=== PATIENT | male | born 1970 | race Caucasian/White ===

== ENCOUNTER 2017-03-27 09:18 | Inpatient (IN) | payer OTHER ==
[2017-03-27 10:32] VITALS: BMI 27.3
[2017-03-27] MEDS ORDERED: IBUPROFEN 400 MG TABLET (FP) PO PRN (12:53)
[2017-03-27] MEDS ORDERED: MAGNESIUM CITRATE 300 ML BOTTLE PO PRN (12:53)
[2017-03-27] MEDS ORDERED: P-EPHED 60MG/TRIPROLIDI 2.5MG TABLET PO PRN (12:53)
[2017-03-27] MEDS ORDERED: MAGNESIUM HYDROX 2400MG/30ML ORAL SUSPENSION 30 ML CUP PO PRN (12:53)
[2017-03-27] MEDS ORDERED: guaiFENesin/D-METHORPHAN HB 10 ML UNIT-DOSE CUPS PO PRN (12:53)
[2017-03-27] MEDS ORDERED: chlordiazePOXIDE HCL 25 MG CAPSULE PO PRN (12:53)
[2017-03-27] MEDS ORDERED: MAG HYDROX/AL HYDROX/SIMETH 30 ML UNIT-DOSE CUP PO PRN (12:53)
[2017-03-27] MEDS ORDERED: METHADONE HCL 10 MG TABLET (FOR DETOX USE ONLY) PO ONE ×2 (12:53→23:00)
[2017-03-27] MEDS ORDERED: diphenhydrAMINE HCL 50 MG CAPSULE PO PRN (12:53)
[2017-03-27] MEDS ORDERED: NICOTINE POLACRILEX 2 MG GUM BUC PRN (12:53)
[2017-03-27] MEDS ORDERED: LOPERAMIDE HCL 2 MG CAPSULE PO PRN (12:53)
[2017-03-27] MEDS ORDERED: ACETAMINOPHEN 325 MG TABLET (FP) PO PRN (12:53)
[2017-03-27] MEDS ORDERED: MENTHOL/PHENOL 1 EACH UD MM PRN (12:53)
[2017-03-27] MEDS ORDERED: chlordiazePOXIDE HCL 25 MG CAPSULE PO ONE (12:53)
--- NOTE | 2017-03-27 13:05 | HP ---
COWS - Scale Resting Pulse: 1= [place] 81-100 Sweatin=Flushed/Facial Moisture Restless Observation: 1= Difficult to Sit Still Pupil Size: 1= Pupils >than Normal Bone or Joint Aches: 1= Mild Discomfort Runny Nose/ Eye Tearin= Nasal Congestion GI Upset > 30mins: 2= Nausea/Diarrhea Tremor Observation: 2= Slight Tremor Visible Yawning Observation: 2= >3x During Session Anxiety or Irritability: 2=Irritable/Anxious Goose Flesh Skin: 0=Smooth Skin COWS Score: 15 CIWA Score - CIWA Score Nausea/Vomitin Muscle Tremors: 3 Anxiety: 4-Mod. Anxious/Guarded Agitation: 4-Moderately Restless Paroxysmal Sweats: 3 Orientation: 0-Oriented Tacttile Disturbances: 1-Very Mild Itch/Numbness Auditory Disturbances: 0-None Visual Disturbances: 0-None Headache: 0-None Present CIWA-Ar Total Score: 17 Admission ROS BHS - HPI Chief Complaint: Withdrawal sx. Allergies/Adverse Reactions: Allergies Allergy/AdvReac Type Severity Reaction Status Date / Time No Known Allergies Allergy Verified 03/27/17 10:22 History of Present Illness: 46 y/o man with a long hx. of heroin & alcohol dependence is admitted for detox. Pt. has been in previous detox & OTP many yrs. ago. Exam Limitations: No Limitations - Ebola screening Have you traveled outside of the country in the last 21 days: No Have you had contact with anyone from an Ebola affected area: No Have you been sick,other than usual withdrawal symptoms: No Do you have a fever: No - Review of Systems Constitutional: Diaphoresis EENT: reports: Nose Congestion Respiratory: reports: Shortness of Breath (because of smoking) Cardiac: reports: No Symptoms Reported GI: reports: Nausea, Abdominal cramping : reports: No Symptoms Reported Musculoskeletal: reports: Back Pain, Joint Pain Integumentary: reports: Sweating Neuro: reports: Tingling, Tremors Endocrine: reports: No Symptoms Reported Hematology: reports: No Symptoms Reported Psychiatric: reports: No Sypmtoms Reported Other Systems: Reviewed and Negative Patient History - Patient Medical History Hx Anemia: No Hx Asthma: No Hx Chronic Obstructive Pulmonary Disease (COPD): Yes (Early signs of COPD) Hx Cancer: No Hx Cardiac Disorders: No Hx Congestive Heart Failure: No Hx Hypertension: No Hx Hypercholesterolemia: No Hx Pacemaker: No HX Cerebrovascular Accident: No Hx Seizures: No Hx Diabetes: No Hx Gastrointestinal Disorders: No Hx Liver Disease: No Hx Genitourinary Disorders: No Hx Sexually Transmitted Disorders: No Hx Renal Disease (ESRD): No Hx Thyroid Disease: No Hx Human Immunodeficiency Virus (HIV): No Hx Hepatitis C: No Hx Depression: Yes Hx Suicide Attempt: No Hx Bipolar Disorder: Yes Hx Schizophrenia: No Other Medical History: Weekend palsy (left axillary nerve impingent) - Patient Surgical History Past Surgical History: Yes Hx Neurologic Surgery: No Hx Cataract Extraction: No Hx Cardiac Surgery: No Hx Lung Surgery: No Hx Breast Surgery: No Hx Breast Biopsy: No Hx Abdominal Surgery: No Hx Appendectomy: No Hx Cholecystectomy: No Hx Genitourinary Surgery: No Hx Section: No Hx Orthopedic Surgery: No Other Surgical History: repair of torn tendon of bicept right arm Anesthesia Reaction: No - PPD History Previous Implant?: Yes Documented Results: Negative w/o proof PPD to be Administered?: Yes - Smoking Cessation Smoking history: Current every day smoker Have you smoked in the past 12 months: Yes Aproximately how many cigarettes per day: 10 Hx Chewing Tobacco Use: No Initiated information on smoking cessation: Yes 'Breaking Loose' booklet given: 03/27/17 - Substance & Tx. History Hx Alcohol Use: Yes Hx Substance Use: Yes Substance Use Type: Alcohol, Cocaine, Heroin Hx Substance Use Treatment: Yes (many yrs. ago) - Substances Abused Alcohol Route: Oral Frequency: Daily Amount used: Vodka 2 PINTS, BEER- 2 SIX PACKS Age of first use: 15 Date of Last Use: 03/26/17 Cocaine Route: Injection Frequency: Daily Amount used: 2gm Age of first use: 18 Date of Last Use: 03/26/17 Heroin Route: Injection Frequency: Daily Amount used: 1 bag Age of first use: 30 Date of Last Use: 03/26/17 Family Disease History - Family Disease History Family Disease History: Diabetes: Mother (high chol), Heart Disease: Father ( CABG), Mother, Other: Mother Admission Physical Exam BHS - Vital Signs Vital Signs: Vital Signs - 24 hr 03/27/17 10:00 Temperature 97 F L Pulse Rate 88 Respiratory 18 Rate Blood Pressure 125/80 - Physical General Appearance: Yes: Tremorous, Irritable, Sweating, Anxious HEENTM: Yes: Nasal Congestion, Rhinorrhea Respiratory: Yes: Chest Non-Tender, Lungs Clear, Normal Breath Sounds Neck: Yes: Supple Breast: Yes: Breast Exam Deferred Cardiology: Yes: Regular Rhythm, Regular Rate, S1, S2 Abdominal: Yes: Normal Bowel Sounds, Non Tender, Soft Genitourinary: Yes: Within Normal Limits Back: Yes: Within Normal Limits Musculoskeletal: Yes: Within Normal Limits Extremities: Yes: Tremors Neurological: Yes: Fully Oriented, Alert Integumentary: Yes: Diaphoresis Lymphatic: Yes: Within Normal Limits - Diagnostic (1) Alcohol dependence with uncomplicated withdrawal Current Visit: Yes Status: Acute (2) Cocaine dependence, uncomplicated Current Visit: Yes Status: Acute (3) Opioid dependence with withdrawal Current Visit: Yes Status: Acute Cleared for Admission [facility] - Detox or Rehab [facility] Level of Care: Medically Managed Detox Regimen/Protocol: Methadone/Librium [facility] Breath Alcohol Content Breath Alcohol Content: 0 Urine Drug Screen - Results Drug Screen Negative: No Urine Drug Screen Results: GINGER-Cocaine, OPI-Opiates
[2017-03-27] MEDS: NICOTINE 21 MG/24 HOURS TOPICAL PATCH TD SCH (14:15)
[2017-03-27] MEDS: chlordiazePOXIDE HCL 25 MG CAPSULE PO SCH ×2 (17:24→22:08)
[2017-03-27 18:18] LABS: URINE APPEARANCE CLEAR; URINE BILIRUBIN NEGATIVE (NEGATIVE); URINE BLOOD NEGATIVE (NEGATIVE); URINE COLOR STRAW; URINE GLUCOSE (UA) NEGATIVE (NEGATIVE); URINE KETONE NEGATIVE (NEGATIVE); URINE LEUK ESTERASE NEGATIVE (NEGATIVE); URINE NITRITE NEGATIVE (NEGATIVE); URINE PROTEIN NEGATIVE (NEGATIVE); URINE UROBILINOGEN NEGATIVE mg/dL (0.2-1.0)
[2017-03-27] MEDS: ALBUTEROL SO4 6.7 GM HFA INHALER IH PRN (19:24)
[2017-03-27] MEDS: hydrOXYzine PAMOATE 50 MG CAPSULE (FP) PO PRN (19:48)
[2017-03-27] MEDS: THIAMINE HCL 100 MG TABLET (FP) PO SCH (22:08)
[2017-03-28] MEDS: hydrOXYzine PAMOATE 50 MG CAPSULE (FP) PO PRN (03:50)
[2017-03-28] MEDS: chlordiazePOXIDE HCL 25 MG CAPSULE PO SCH ×4 (04:55→23:59)
--- NOTE | 2017-03-28 08:47 | CONSULT ---
[facility] Psychiatric Consult - Data Date of interview: 03/28/17 Admission source: [facility] Identifying data: This is 46 years old male with history of Bipolar Disorder intoxicated with : Alcohol, Opioids and Cocaine Substance Abuse History: - Smoking Cessation. Smoking history: Current every day smoker. Have you smoked in the past 12 months: Yes. Aproximately how many cigarettes per day: 10. Hx Chewing Tobacco Use: No. Initiated information on smoking cessation: Yes. 'Breaking Loose' booklet given: 03/27/17. - Substance & Tx. History. Hx Alcohol Use: Yes. Hx Substance Use: Yes. Substance Use Type : Alcohol, Cocaine, Heroin. Hx Substance Use Treatment: Yes (many yrs. ago). - Substances Abused. Alcohol. Route: Oral. Frequency: Daily. Amount used : Vodka 2 PINTS, BEER- 2 SIX PACKS. Age of first use: 15. Date of Last Use: . Cocaine. Route: Injection. Frequency: Daily. Amount used: 2gm. Age of first use: 18. Date of Last Use: 03/26/17. Heroin. Route: Injection. Frequency: Daily. Amount used: 1 bag. Age of first use: 30. Date of Last Use: 03/26/17 Medical History: Patient denies significant medical problem Psychiatric History: Patient reports history of Bipolar disorder with m,ost recent psychiatric admission on 2016 at [facility], reports currently taking: Haldol 5mg po bid. Depakote 500mg po bid. Zyprexa 5mg poqd. Cogentin 1mg po bid. Physical/Sexual Abuse/Trauma History: Denies Additional Comment: Haldol 5mg po bid. Depakote 500mg po bid. Zyprexa 5mg poqd. Cogentin 1mg po bid Mental Status Exam - Mental Status Exam Alert and Oriented to: Person Cognitive Function: Fair Patient Appearance: Unkempt Mood: Sad Affect: Flat Patient Behavior: Sedated Speech Pattern: Delayed Voice Loudness: Mildly Loud Thought Process: Circumstantial Thought Disorder: Being Controlled Hallucinations: Denies Suicidal Ideation: Denies Homicidal Ideation: Denies Insight/Judgement: Fair Sleep: Difficulty falling asleep Appetite: Weight gain Muscle strength/Tone: Mild Hypotonicity Gait/Station: Shuffling Additional Comments: Haldol 5mg po bid. Depakote 500mg po bid. Zyprexa 5mg poqd. Cogentin 1mg po bid Psychiatric Findings - Problem List ([place] 1, 2,3) (1) Alcohol dependence with uncomplicated withdrawal Current Visit: Yes Status: Chronic (2) Cocaine dependence, uncomplicated Current Visit: Yes Status: Chronic (3) Opioid dependence with withdrawal Current Visit: Yes Status: Chronic (4) Bipolar I disorder Current Visit: Yes Status: Acute Comment: Haldol 5mg po bid Depakote 500mg po bid Zyprexa 5mg poqd Cogentin 1mg po bid - Initial Treatment Plan Initial Treatment Plan: Haldol 5mg po bid. Depakote 250mg po bid. Zyprexa 5mg poqd-Hold. Cogentin 1mg po bid. Blood Depakote level
[2017-03-28] MEDS ORDERED: METHADONE HCL 5 MG TABLET (FOR DETOX USE ONLY) PO SCH (10:00)
[2017-03-28 10:18] LABS: MCH 29.9 pg (25.7-33.7); MEAN CELL VOLUME 90.6 fl (80-96); MEAN PLT VOLUME 9.6 fl (7.5-11.1); PLATELET COUNT 234 K/MM3 (134-434); RDW 13.9 % (11.9-15.9); WHITE BLOOD COUNT 6.8 K/mm3 (4.0-10.0)
[2017-03-28] MEDS: DIVALPROEX SODIUM 250 MG TABLET E.C. (FP) PO SCH ×2 (10:21→23:59)
[2017-03-28] MEDS: HALOPERIDOL 5 MG TABLET (FP) PO PRN (10:21)
[2017-03-28] MEDS: PRENATAL VITAMINS W/ FOLIC ACID TABLET (FP) PO SCH (10:21)
--- NOTE | 2017-03-28 10:26 | PN ---
[facility] CIWA - CIWA Score Nausea/Vomitin-No Nausea/No Vomiting Muscle Tremors: 4-Moderate,w/Arms Extend Anxiety: 3 Agitation: 4-Moderately Restless Paroxysmal Sweats: 3 Orientation: 0-Oriented Tacttile Disturbances: 0-None Auditory Disturbances: 0-None Visual Disturbances: 0-None Headache: 0-None Present CIWA-Ar Total Score: 14 BHS COWS - Scale Resting Pulse: 0= [place] 80 or Below Sweatin=Flushed/Facial Moisture Restless Observation: 1= Difficult to Sit Still Pupil Size: 0= Normal to Room Light Bone or Joint Aches: 1= Mild Discomfort Runny Nose/ Eye Tearin= Nasal Congestion GI Upset > 30mins: 0= None Tremor Observation of Outstretched Hands: 2= Slight Tremor Visible Yawning Observation: 2= >3x During Session Anxiety or Irritability: 2=Irritable/Anxious Goose Flesh Skin: 3=Piloerection COWS Score: 14 [facility] Progress Note (SOAP) Subjective: restless irritable agitation anxiety body aches interrupted sleep I would like to see dietary Objective: 03/28/17 11:08 Vital Signs Temperature 98.1 F 03/28/17 09:54 Pulse Rate 79 03/28/17 09:54 Respiratory Rate 18 03/28/17 09:54 Blood Pressure 108/57 03/28/17 09:54 O2 Sat by Pulse Oximetry (%) Laboratory Tests 03/27/17 03/28/17 03/28/17 15:33 07:00 07:00 WBC 6.8 RBC 3.77 L Hgb 11.3 L Hct 34.2 L MCV 90.6 MCH 29.9 MCHC 33.0 RDW 13.9 Plt Count 234 MPV 9.6 Sodium 142 Potassium 4.4 Chloride 106 Carbon Dioxide 28 Anion Gap 8 BUN 22 H Creatinine 0.8 Creat Clearance w eGFR > 60 Random Glucose 105 Calcium 8.8 Total Bilirubin 0.2 AST 16 ALT 26 Alkaline Phosphatase 83 Total Protein 6.7 Albumin 3.2 L Urine Color Straw Urine Appearance Clear Urine pH 6.0 Ur Specific [place] 1.015 Urine Protein Negative Urine Glucose (UA) Negative Urine Ketones Negative Urine Blood Negative Urine Nitrite Negative Urine Bilirubin Negative Urine Urobilinogen Negative Ur Leukocyte Esterase Negative awake/alert ambulating no acute distress Assessment: 03/28/17 11:08 withdrawal sx Plan: continue detox increase fluids dietary risk consultant ordered
[2017-03-28 10:32] LABS: ALBUMIN 3.2 g/dl (3.4-5.0); ALK PHOS 83 U/L (45-117); ANION GAP 8 (8-16); BILIRUBIN,TOTAL 0.2 mg/dL (0.2-1.0); CALCIUM 8.8 mg/dL (8.5-10.1); CO2 28 mmol/L (21-32); CREATININE 0.8 mg/dL (0.7-1.3); GLUCOSE,RANDOM 105 mg/dL (74-106); SGOT/AST 16 U/L (15-37); SGPT/ALT 26 U/L (12-78); TOT PROT 6.7 g/dl (6.4-8.2)
[2017-03-28] MEDS: NICOTINE 21 MG/24 HOURS TOPICAL PATCH TD SCH (10:48)
[2017-03-28] MEDS ORDERED: OLANZapine 5 MG TABLET PO ONE (15:30)
--- NOTE | 2017-03-28 23:18 | EKG ---
Test Reason : Blood Pressure : / mmHG Vent. Rate : 088 BPM Atrial Rate : 088 BPM P-R Int : 142 ms QRS Dur : 084 ms QT Int : 338 ms P-R-T Axes : 057 045 050 degrees QTc Int : 408 ms NORMAL SINUS RHYTHM NORMAL ECG NO PREVIOUS ECGS AVAILABLE Confirmed by HOMA HEATON MD ([id number]) on 03/28/2017 11:17:45 PM Referred By: Confirmed By:HOMA HEATON MD
[2017-03-28] MEDS: THIAMINE HCL 100 MG TABLET (FP) PO SCH (23:59)
[2017-03-28] MEDS: BENZTROPINE MESYLATE 1 MG TABLET (FP) PO SCH (23:59)
[2017-03-29] MEDS: chlordiazePOXIDE HCL 25 MG CAPSULE PO SCH ×2 (06:52→10:14)
[2017-03-29] MEDS ORDERED: METHADONE HCL 10 MG TABLET (FOR DETOX USE ONLY) PO SCH (10:00)
[2017-03-29] MEDS: HALOPERIDOL 5 MG TABLET (FP) PO PRN (10:14)
[2017-03-29] MEDS: PRENATAL VITAMINS W/ FOLIC ACID TABLET (FP) PO SCH (10:14)
[2017-03-29] MEDS: DIVALPROEX SODIUM 250 MG TABLET E.C. (FP) PO SCH ×2 (10:14→22:25)
[2017-03-29] MEDS: BENZTROPINE MESYLATE 1 MG TABLET (FP) PO SCH ×2 (10:14→22:25)
[2017-03-29] MEDS: NICOTINE 21 MG/24 HOURS TOPICAL PATCH TD SCH (10:14)
[2017-03-29] MEDS: ALBUTEROL SO4 6.7 GM HFA INHALER IH PRN ×2 (10:15→20:24)
[2017-03-29] MEDS: OLANZapine 5 MG TABLET PO SCH (10:15)
--- NOTE | 2017-03-29 10:27 | PN ---
[facility] CIWA - CIWA Score Nausea/Vomitin Muscle Tremors: 4-Moderate,w/Arms Extend Anxiety: 4-Mod. Anxious/Guarded Agitation: 4-Moderately Restless Paroxysmal Sweats: 3 Orientation: 0-Oriented Tacttile Disturbances: 0-None Auditory Disturbances: 0-None Visual Disturbances: 0-None Headache: 1-Very Mild CIWA-Ar Total Score: 19 BHS COWS - Scale Resting Pulse: 1= [place] 81-100 Sweatin= Chills/Flushing Restless Observation: 1= Difficult to Sit Still Pupil Size: 1= Pupils >than Normal Bone or Joint Aches: 1= Mild Discomfort Runny Nose/ Eye Tearin= Nasal Congestion GI Upset > 30mins: 2= Nausea/Diarrhea Tremor Observation of Outstretched Hands: 2= Slight Tremor Visible Yawning Observation: 2= >3x During Session Anxiety or Irritability: 2=Irritable/Anxious Goose Flesh Skin: 3=Piloerection COWS Score: 17 S Progress Note (SOAP) Subjective: nausea, sweats, interrupted sleep, anxiety, tremosr, body aches Objective: 03/29/17 10:27 Vital Signs - 8 hr 03/29/17 06:52 Temperature 99.3 F Pulse Rate 90 Respiratory 18 Rate Blood Pressure 113/68 Laboratory Tests 03/27/17 03/28/17 03/28/17 15:33 07:00 07:00 WBC 6.8 RBC 3.77 L Hgb 11.3 L Hct 34.2 L MCV 90.6 MCH 29.9 MCHC 33.0 RDW 13.9 Plt Count 234 MPV 9.6 Sodium 142 Potassium 4.4 Chloride 106 Carbon Dioxide 28 Anion Gap 8 BUN 22 H Creatinine 0.8 Creat Clearance w eGFR > 60 Random Glucose 105 Calcium 8.8 Total Bilirubin 0.2 AST 16 ALT 26 Alkaline Phosphatase 83 Total Protein 6.7 Albumin 3.2 L Urine Color Straw Urine Appearance Clear Urine pH 6.0 Ur Specific [place] 1.015 Urine Protein Negative Urine Glucose (UA) Negative Urine Ketones Negative Urine Blood Negative Urine Nitrite Negative Urine Bilirubin Negative Urine Urobilinogen Negative Ur Leukocyte Esterase Negative RPR Titer 03/28/17 07:00 WBC RBC Hgb Hct MCV MCH MCHC RDW Plt Count MPV Sodium Potassium Chloride Carbon Dioxide Anion Gap BUN Creatinine Creat Clearance w eGFR Random Glucose Calcium Total Bilirubin AST ALT Alkaline Phosphatase Total Protein Albumin Urine Color Urine Appearance Urine pH Ur Specific [place] Urine Protein Urine Glucose (UA) Urine Ketones Urine Blood Urine Nitrite Urine Bilirubin Urine Urobilinogen Ur Leukocyte Esterase RPR Titer Nonreactive Assessment: 03/29/17 10:27 withdrawal sx Plan: cont detox,
[2017-03-29 12:37] LABS: HIV 1 & 2 AB NEGATIVE; HIV 1 AGp24 NEGATIVE
[2017-03-29] MEDS: cloNIDine HCL 0.1 MG TABLET PO SCH ×2 (13:15→22:24)
[2017-03-29] MEDS: PANTOPRAZOLE 40 MG TABLET (FP) PO SCH (13:15)
[2017-03-29] MEDS: NAPROXEN 500 MG TABLET (FP) PO SCH ×2 (13:15→22:26)
[2017-03-29] MEDS ORDERED: GABAPENTIN 100 MG CAPSULE (FP) PO SCH (14:00)
[2017-03-29] MEDS ORDERED: CYCLOBENZAPRINE HCL 10 MG TABLET (FP) PO SCH (14:00)
[2017-03-29] MEDS: chlordiazePOXIDE 5 MG CAPSULE PO SCH ×2 (20:50→22:26)
[2017-03-29] MEDS ORDERED: ZOLPIDEM TARTRATE 10 MG TABLET (PARK CARE ONLY) PO PRN (22:00)
[2017-03-29] MEDS: THIAMINE HCL 100 MG TABLET (FP) PO SCH (22:24)
[2017-03-30] MEDS: METHADONE HCL 5 MG TABLET (FOR DETOX USE ONLY) PO SCH ×2 (06:28→06:34)
[2017-03-30] MEDS: chlordiazePOXIDE 5 MG CAPSULE PO SCH ×2 (06:29→10:40)
[2017-03-30] MEDS: PRENATAL VITAMINS W/ FOLIC ACID TABLET (FP) PO SCH (10:37)
[2017-03-30] MEDS: OLANZapine 5 MG TABLET PO SCH (10:38)
[2017-03-30] MEDS: PANTOPRAZOLE 40 MG TABLET (FP) PO SCH (10:38)
[2017-03-30] MEDS: cloNIDine HCL 0.1 MG TABLET PO SCH ×2 (10:38→22:04)
[2017-03-30] MEDS: NAPROXEN 500 MG TABLET (FP) PO SCH ×2 (10:39→22:03)
[2017-03-30] MEDS: BENZTROPINE MESYLATE 1 MG TABLET (FP) PO SCH ×2 (10:39→22:03)
[2017-03-30] MEDS: DIVALPROEX SODIUM 250 MG TABLET E.C. (FP) PO SCH ×2 (10:40→22:03)
[2017-03-30] MEDS: NICOTINE 21 MG/24 HOURS TOPICAL PATCH TD SCH (10:40)
--- NOTE | 2017-03-30 11:46 | PN ---
BHS Progress Note (SOAP) Subjective: feeling better sweats Objective: 03/30/17 11:45 Vital Signs Temperature 97.3 F L 03/30/17 06:32 Pulse Rate 84 03/30/17 06:32 Respiratory Rate 18 03/30/17 06:32 Blood Pressure 112/68 03/30/17 06:32 O2 Sat by Pulse Oximetry (%) awake/alert ambulating no acute distress Assessment: 03/30/17 11:46 withdrawal sx Plan: continue detox increase fluids d/c in am
[2017-03-30] MEDS: ALBUTEROL SO4 6.7 GM HFA INHALER IH PRN (21:12)
[2017-03-30] MEDS: THIAMINE HCL 100 MG TABLET (FP) PO SCH (22:03)
[2017-03-30] MEDS: chlordiazePOXIDE HCL 10 MG CAPSULE PO SCH (22:05)
[2017-03-31] MEDS: chlordiazePOXIDE HCL 10 MG CAPSULE PO SCH (05:49)
--- NOTE | 2017-03-31 08:52 | DS ---
[facility] Detox Discharge Summary Admission Date: 03/27/17 Discharge Date: 03/31/17 - History Present History: Alcohol Dependence, Cocaine Dependence, Opioid Dependence - Physical Exam Results Vital Signs: Vital Signs Temperature 98.1 F 03/31/17 06:59 Pulse Rate 81 03/31/17 06:59 Respiratory Rate 18 03/31/17 06:59 Blood Pressure 104/60 03/31/17 06:59 O2 Sat by Pulse Oximetry (%) - Treatment Hospital Course: Detox Protocol Followed, Detoxed Safely, Responded well, Discharged Condition Good, Rehab Referral Accepted - Medication Discharge Medications: Ambulatory Orders Divalproex [Depakote -] 500 mg PO BID 03/27/17 Gabapentin [Neurontin -] 300 mg PO TID 03/27/17 Haloperidol [Haldol -] 5 mg PO BID 03/27/17 Olanzapine [Zyprexa -] 5 mg PO DAILY 03/27/17 Benztropine Mesylate [Cogentin -] 1 mg PO BID #60 tablet 03/28/17 Benztropine Mesylate [Cogentin -] 1 mg PO BID #60 tablet 03/28/17 Divalproex [Depakote -] 250 mg PO BID #60 tablet.ec 03/28/17 Haloperidol Lactate [Haldol] 5 mg IJ BID #60 ampul 03/28/17 Haloperidol [Haldol -] 5 mg PO BID PRN #60 tablet 03/28/17 - Diagnosis (1) Alcohol dependence with uncomplicated withdrawal Current Visit: Yes Status: Chronic (2) Cocaine dependence, uncomplicated Current Visit: Yes Status: Chronic (3) Opioid dependence with withdrawal Current Visit: Yes Status: Chronic - AMA Did Patient Leave Against Medical Advice: No
[2017-03-31] MEDS: DIVALPROEX SODIUM 250 MG TABLET E.C. (FP) PO SCH (09:26)
[2017-03-31] MEDS: PRENATAL VITAMINS W/ FOLIC ACID TABLET (FP) PO SCH (09:27)
[2017-03-31] MEDS: NAPROXEN 500 MG TABLET (FP) PO SCH (09:27)
[2017-03-31] MEDS: PANTOPRAZOLE 40 MG TABLET (FP) PO SCH (09:27)
[2017-03-31] MEDS: OLANZapine 5 MG TABLET PO SCH (09:27)
[2017-03-31] MEDS: BENZTROPINE MESYLATE 1 MG TABLET (FP) PO SCH (09:27)
[2017-03-31] MEDS: NICOTINE 21 MG/24 HOURS TOPICAL PATCH TD SCH (09:27)
[2017-03-31] MEDS: cloNIDine HCL 0.1 MG TABLET PO SCH (09:30)
[2017-03-31 10:03] VITALS: BP 110/60; PULSE 87; TEMP 98.2
== END 2017-03-31 11:40 | disposition home or self-care (01) | DRG 773 ==
LOC: YASAS 09:18 → Y6N 12:38
PROVIDERS: ADMIT Internal Medicine; ATTEND Internal Medicine Addiction Medicine
PROC: HZ2ZZZZ Detoxification Services for Substance Abuse Treatment (ICD-10-PCS; principal; 2017-03-27)
DX: F11.23 Opioid dependence with withdrawal (principal); F10.230 Alcohol dependence with withdrawal, uncomplicated; F14.20 Cocaine dependence, uncomplicated; F31.89 Other bipolar disorder
CPT/HCPCS: 36415; 80053; 80164; 81003; 85027; 86593; 87389; 93005; 93010

== ENCOUNTER 2017-10-12 11:52 | Inpatient (IN) | payer OTHER ==
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
[2017-10-12] MEDS ORDERED: HALOPERIDOL 5 MG TABLET (FP) PO PRN (14:13)
[2017-10-12] MEDS ORDERED: guaiFENesin/D-METHORPHAN HB 10 ML UNIT-DOSE CUPS PO PRN (14:23)
[2017-10-12] MEDS ORDERED: MENTHOL/PHENOL 1 EACH UD MM PRN (14:23)
[2017-10-12] MEDS ORDERED: ACETAMINOPHEN 325 MG TABLET (FP) PO PRN (14:23)
[2017-10-12] MEDS ORDERED: IBUPROFEN 400 MG TABLET (FP) PO PRN (14:23)
[2017-10-12] MEDS ORDERED: LOPERAMIDE HCL 2 MG CAPSULE PO PRN (14:23)
[2017-10-12] MEDS ORDERED: hydrOXYzine PAMOATE 50 MG CAPSULE (FP) PO PRN (14:23)
[2017-10-12] MEDS ORDERED: P-EPHED 60MG/TRIPROLIDI 2.5MG TABLET PO PRN (14:23)
[2017-10-12] MEDS ORDERED: MAGNESIUM CITRATE 300 ML BOTTLE PO PRN (14:23)
[2017-10-12] MEDS ORDERED: MAGNESIUM HYDROX 2400MG/30ML ORAL SUSPENSION 30 ML CUP PO PRN (14:23)
[2017-10-12] MEDS ORDERED: MAG HYDROX/AL HYDROX/SIMETH 30 ML UNIT-DOSE CUP PO PRN (14:23)
--- NOTE | 2017-10-12 14:23 | HP ---
[facility] Rehab Assess/Revision - Admission History Admitted to Rehab from: [facility] Date of Admission to Rehab: 10/12/17 - Findings Detox History & Physical reviewed: Yes Concur with findings: Yes Comments/Additional Findings: FOR REHAB PROTOCOL Inpatient Rehab Admission - Initial Determination Are CD services needed?: Yes Free of communicable disease: Yes Not in need of hospitalization: Yes - Rehab Admission Criteria Previous failed treatment: Yes Poor recovery environment: Yes Comorbidities: Yes Lacks judgement: No Patient is meeting Inpatient Rehab admission criteria:: Yes
[2017-10-12 15:07] VITALS: BMI 26.5
[2017-10-12] MEDS: THIAMINE HCL 100 MG TABLET (FP) PO SCH (21:50)
[2017-10-12] MEDS: MELATONIN 5 MG TABLETS PO PRN (21:50)
[2017-10-12] MEDS: BENZTROPINE MESYLATE 1 MG TABLET (FP) PO SCH (22:37)
[2017-10-13 07:18] VITALS: PULSE 71
[2017-10-13] MEDS: PRENATAL VITAMINS W/ FOLIC ACID TABLET (FP) PO SCH (10:17)
[2017-10-13] MEDS: BENZTROPINE MESYLATE 1 MG TABLET (FP) PO SCH ×2 (10:18→21:06)
[2017-10-13] MEDS: THIAMINE HCL 100 MG TABLET (FP) PO SCH (21:06)
[2017-10-13] MEDS: MELATONIN 5 MG TABLETS PO PRN (21:06)
[2017-10-14 07:37] VITALS: BP 104/63; TEMP 98.4
[2017-10-14] MEDS: BENZTROPINE MESYLATE 1 MG TABLET (FP) PO SCH (10:36)
[2017-10-14] MEDS: PRENATAL VITAMINS W/ FOLIC ACID TABLET (FP) PO SCH (10:36)
--- NOTE | 2017-10-14 11:32 | PN ---
Psychiatric Progress Note Vital Signs: Vital Signs Period Temp Pulse Resp BP Sys/[place] Pulse Ox Last 24 Hr 98.4 F 71 18 104/63 Date of Session: 10/14/17 Chief Complaint:: Discharge Note HPI: Patient addressing Alcohol, Opioid and Cocaine Dependence comorbid with Nicotine Dependence, Bipolar Disorder and Substance-Induced Sleep Disorder ROS: Emphysema Current Medications: Active Medications Generic Name Dose Route Start Last Admin Trade Name Freq PRN Reason Stop Dose Admin Acetaminophen 650 mg 10/12/17 14:23 Tylenol - PO Q4H PRN FEVER Al Hydroxide/Mg Hydroxide 30 ml 10/12/17 14:23 10/14/17 04:36 Mylanta Oral Suspension - PO 30 ml Q6H PRN Administration DYSPEPSIA Benztropine Mesylate 1 mg 10/12/17 22:00 10/14/17 10:36 Cogentin - PO 1 mg BID [place] Administration Eucalyptus/Menthol/Phenol/Sorbitol 1 each 10/12/17 14:23 Cepastat Lozenge - MM Q4H PRN SORE THROAT Guaifenesin 10 ml 10/12/17 14:23 Robitussin Dm - PO Q6H PRN COUGH Haloperidol 5 mg 10/12/17 14:13 Haldol - PO BID PRN AGITATION Hydroxyzine Pamoate 50 mg 10/12/17 14:23 Vistaril - PO Q4H PRN AGITATION Ibuprofen 400 mg 10/12/17 14:23 10/13/17 22:19 Motrin - PO 400 mg Q6H PRN Administration Pain Level 4-6 Loperamide HCl 4 mg 10/12/17 14:23 Imodium - PO Q6H PRN DIARRHEA Magnesium Citrate 300 ml 10/12/17 14:23 Citroma - PO Q48H PRN CONSTIPATION Magnesium Hydroxide 30 ml 10/12/17 14:23 Milk Of Magnesia - PO DAILY PRN CONSTIPATION Melatonin 5 mg 10/12/17 22:00 10/13/17 21:06 Melatonin PO 5 mg HS PRN Administration INSOMNIA Multivit/Folic Acid/Iron 1 tab 10/13/17 10:00 10/14/17 10:36 Vitamins (Sjr) - PO 1 tab DAILY [place] Administration Pseudoephedrine/Triprolidine 1 combo 10/12/17 14:23 Actifed - PO TID PRN NASAL CONGESTION Thiamine HCl 100 mg 10/12/17 22:00 10/13/17 21:06 Vitamin B1 - PO 100 mg HS LAKE Administration Current Side Effect: No Lab tests ordered: Yes Lab tests reviewed: Yes Provider note:: Patient has not completed this program. He wants to leave against medical advice saying:"I only wanted detox. I've been here long enough" . He was determined to leave despite encouragement to stay and complete the program. Scripts for his medications(Haldol, Cogentin, Depakote) were electronically transmitted to [facility] at [address] [place] [address]. He is stable for discharge today Total face to face time:: 25 Mental Status Exam - Mental Status Exam Alert and Oriented to: Time, Place, Person Cognitive Function: Fair Patient Appearance: Well Groomed Mood: Hopeful, Euthymic Affect: Appropriate Patient Behavior: Cooperative Speech Pattern: Clear Voice Loudness: Normal Thought Process: Intact, Goal Oriented Thought Disorder: Not Present Hallucinations: Denies Suicidal Ideation: Denies Homicidal Ideation: Denies Insight/Judgement: Poor Sleep: Fair Appetite: Good Muscle strength/Tone: Normal Gait/Station: Normal Psychiatric Treatment Plan - Problem List (1) Alcohol dependence Current Visit: Yes (2) Opioid dependence Current Visit: Yes (3) Cocaine dependence Current Visit: Yes (4) Nicotine dependence Current Visit: Yes (5) Bipolar I disorder Current Visit: No Comment: Haldol 5mg po bid Depakote 500mg po bid Zyprexa 5mg poqd Cogentin 1mg po bid (6) Substance-induced sleep disorder Current Visit: Yes (7) Emphysema lung Current Visit: Yes Initial treatment plan: Patient is discharged AMA
== END 2017-10-14 11:42 | disposition left against medical advice (07) | DRG 770 ==
LOC: YASAS 11:52 → Y3W 11:54
PROVIDERS: ADMIT Psychiatry & Neurology Psychiatry; ATTEND Psychiatry & Neurology Psychiatry
PROC: HZ42ZZZ Group Counseling for Substance Abuse Treatment, Cognitive-Behavioral (ICD-10-PCS; principal; 2017-10-12)
DX: F11.20 Opioid dependence, uncomplicated (principal); F10.20 Alcohol dependence, uncomplicated; F14.20 Cocaine dependence, uncomplicated; F17.210 Nicotine dependence, cigarettes, uncomplicated; F31.89 Other bipolar disorder; F19.282 Other psychoactive substance dependence with psychoactive substance-induced sleep disorder; J43.9 Emphysema, unspecified